=== PATIENT | female | born 1960 | race Asian ===

== ENCOUNTER 2024-04-16 20:48 | Emergency (ER) | payer OTHER ==
[~2024-04-16] VITALS: Ht 157.5 cm; Wt 114.0 kg
[2024-04-16 20:54] VITALS: BP 131/105; PULSE 77; RESP 18; TEMP 98; O2SAT 98
[2024-04-16 22:05] LABS: BASOPHILS % 0.6 % (0.0-2.0); EOSINOPHILS % 0.6 % (0.0-5.0); HEMOGLOBIN. 12.1 g/dL (12.0-16.0); LYMPHOCYTES % 9.4 % (20.0-50.0); MEAN CORPUSCULAR HEMOGLOBIN 29.4 pg (28.0-32.0); MEAN CORPUSCULAR HGB CONC 32.8 g/dL (31.0-37.0); MEAN CORPUSCULAR VOLUME 89.5 fL (81.0-99.0); MEAN PLATELET VOLUME 8.1 fl (7.4-10.4); MONOCYTES % 4.9 % (2.0-8.0); NEUTROPHILS % 84.5 % (40.0-76.0); PLATELET 273 x1000/uL (130-400); RED BLOOD CELL COUNT 4.13 mill/uL (4.2-5.4); RED CELL DISTRIBUTION WIDTH 13.6 % (11.6-14.6); WHITE BLOOD COUNT 13.7 x1000/uL (4.5-11.0)
[2024-04-16 22:17] LABS: CARBON DIOXIDE 30 mEq/L (21-32); CHLORIDE 103 mEq/L (98-107); POTASSIUM 4.3 mEq/L (3.5-5.1); SODIUM 137 mEq/L (136-145)
[2024-04-16 22:18] LABS: CALCIUM 9.4 mg/dL (8.7-10.4)
[2024-04-16] MEDS: SODIUM CHLORIDE 0.9% 500 ML IV ONE (22:20)
[2024-04-16 22:23] LABS: GLUCOSE 222 mg/dL (70-105); UREA NITROGEN BLOOD 19 mg/dL (9-23)
[2024-04-16 22:25] LABS: TROPONIN I HIGH SENSITIVITY 4 ng/L (3.0-34)
== END 2024-04-17 02:17 | disposition home or self-care (01) ==
LOC: ER 21:17
DX: R55 Syncope and collapse (principal); E11.9 Type 2 diabetes mellitus without complications; I10 Essential (primary) hypertension
CPT/HCPCS: 99285; 96360; 70450; 71045; 80048; 83880; 85025; 84484; 36415; 93005; J7040